=== PATIENT | female | born 1940 | race Hispanic/Latino ===

== ENCOUNTER 2017-09-30 08:56 | Emergency (ER) | payer OTHER ==
[~2017-09-30] VITALS: Ht 157.5 cm; Wt 61.2 kg
[~2017-09-30 08:56] MED LIST: KEFLEX500 MG PO; TYLENOL WITH C1 EACH PO
[2017-09-30] MEDS ORDERED: PRAVASTATIN SOD40 MG PO (09:24)
[2017-09-30] MEDS ORDERED: OS-CAL 500+D T1 EACH PO (09:24)
[2017-09-30] MEDS ORDERED: MELOXICAM7.5 MG PO (09:24)
[2017-09-30] MEDS ORDERED: METOPROLOL SUCC25 MG PO (09:24)
[2017-09-30] MEDS ORDERED: ALENDRONATE SOD70 MG PO (09:24)
[2017-09-30] MEDS ORDERED: LISINOPRIL10 MG PO (09:24)
[2017-09-30] MEDS ORDERED: MUPIROCIN 2% OINT 22 GM TUBE TOP ONE (09:30)
[2017-09-30] MEDS ORDERED: LIDOCAINE HCL 1% LOCAL INJ 20 ML VIAL INJ ONE (10:00)
[2017-09-30] MEDS ORDERED: ACETAMINOPHEN 325 MG TAB PO ONE (10:00)
--- NOTE | 2017-09-30 10:21 | Diagnostic Imaging Report ---
Exams: Head and maxillofacial CTs without IV contrast History: Trauma, fall Comparison studies: Head CT 05/2208/29/2016. Technique: Axial images were obtained to the vertex and maxillofacial region. Coronal and sagittal images reconstructed from the axial data. Intravenous contrast: None Findings: Scalp: Left frontal laceration. No retained hyperdense foreign body. Bones: No fractures, blastic or lytic lesions. Brain sulci: Appropriate for age. Ventricles: Normal in size and configuration. No hydrocephalus. Parenchyma: No abnormal densities. No masses, acute hemorrhage, acute or chronic vascular insults. Sellar/suprasellar region: No abnormalities Craniocervical junction: The cerebellar tonsils lie 12 mm below the foramen magnum compatible with Chiari one malformation. Maxillofacial CT: Soft tissues: Right premaxillary hematoma. Bones: No fractures or bony abnormalities. Orbits: Right lens replacement related to previous cataract surgery. Otherwise, no abnormalities. Paranasal sinuses: Minimal mucosal thickening in the right maxillary sinus. Remaining sinuses are clear. Incidental findings: Right C2-C3 facet arthrosis. Mild chronic inflammatory changes at the right mastoid tip. Atherosclerotic calcifications in the carotid siphons and in the cervical carotid bulbs. Hypodense right thyroid lobe nodule measures up to 3.7 cm. IMPRESSION: Head CT: 1. Left frontal scalp laceration. No retained hyperdense foreign body or fracture. 2. No acute intracranial abnormalities. 3. No other changes from the previous head CT of 05/22/2016. 4. Chiari one malformation. Maxillofacial CT: 1. Right premaxillary soft tissue hematoma. 2. No maxillofacial fracture. 3. Incidental right thyroid lobe nodule. Nonemergent thyroid ultrasound could further evaluate if not previously performed. Signed by: Dr. Wood Cormier M.D. on 09/30/2017 10:18 AM
[2017-09-30] MEDS ORDERED: TETANUS/DIPHTHERIA TOX ADULT 0.5 ML SYR IM STA (10:30)
[2017-09-30] MEDS ORDERED: BACITRACIN ZINC 0.9GM TP ONE (11:00)
[2017-09-30 11:07] VITALS: BP 156/62
== END 2017-09-30 11:30 | disposition home or self-care (01) ==
LOC: ER 08:56
DX: S01.01XA Laceration without foreign body of scalp, initial encounter (principal); W01.0XXA Fall on same level from slipping, tripping and stumbling without subsequent striking against object, initial encounter; Y92.008 Other place in unspecified non-institutional (private) residence as the place of occurrence of the external cause; I10 Essential (primary) hypertension
CPT/HCPCS: 12001; 70450; 70486; 90471; 90714; 99283; J2001

== ENCOUNTER → 2022-08-16 | Outpatient (CLI) | payer MEDICARE ==
[~2022-08-16] MED LIST changes: +ALENDRONATE SOD70 MG PO; +LISINOPRIL10 MG PO; +MELOXICAM7.5 MG PO; +METOPROLOL SUCC25 MG PO; +OS-CAL 500+D T1 EACH PO; +PRAVASTATIN SOD40 MG PO
== END ==
LOC: RAD 14:53
PROVIDERS: ATTEND Nurse Practitioner Gerontology
DX: M79.601 Pain in right arm (principal); M25.531 Pain in right wrist